=== PATIENT | male | born 1940 | race Two or more races ===

== ENCOUNTER → 2021-10-14 | Outpatient (CLI) | payer MEDICARE, OTHER ==
[2021-10-14 17:08] LABS: Basophils # (auto) 0 10 ^3/uL (0-0.2); Basophils % (auto) 0.5 % (0.0-2.0); Eosinophils # (auto) 0.1 10 ^3/uL (0-0.8); Eosinophils % (auto) 2.1 % (0.0-7.0); Hematocrit 41.7 % (41.0-53.0); Hemoglobin 13.5 g/dL (13.5-17.5); Lymphocytes % (auto) 34.4 % (10.0-50.0); Mean Corpuscular Hemoglobin 31.6 pg (28.0-32.0); Mean Corpuscular Hgb Conc. 32.3 g/dL (32.0-36.0); Mean Corpuscular Volume 97.9 fL (80.0-100.0); Monocytes # (auto) 0.6 10 ^3/uL (0-1.3); Monocytes % (auto) 10.6 % (0.0-12.0); Neutrophils # (auto) 3.1 10 ^3/uL (1.6-8.6); Neutrophils % (auto) 52.4 % (37.0-80.0); Nucleated Red Blood Cells % 0.1 %; Red Blood Cells 4.26 10^6/uL (4.5-5.90); Red Cell Distribution Width 13.3 % (11.8-14.3); White Blood Cell 5.9 10^3/uL (4.4-10.8)
[2021-10-14 17:10] LABS: Urine Blood Negative /uL (Negative)
[2021-10-14 17:13] LABS: Albumin 3.8 g/dL (3.4-5.0); Calcium 9.2 mg/dL (8.5-10.1); Potassium 4.1 mmol/L (3.5-5.1)
[2021-10-14 17:20] LABS: Bilirubin, Total 0.6 mg/dL (0.2-1.0); Total Protein 7.2 g/dL (6.4-8.2)
[2021-10-14 17:22] LABS: Free T4 (Free Thyroxine) 1.12 ng/dL (0.89-1.76); Prostate Specific Antigen 0.71 ng/mL (0.0-4.0)
== END | disposition home or self-care (01) ==
LOC: LAB 11:36 → EDSEX 11:36
PROVIDERS: ATTEND Internal Medicine Cardiovascular Disease
DX: C61 Malignant neoplasm of prostate (principal); I10 Essential (primary) hypertension; E55.9 Vitamin D deficiency, unspecified; D51.3 Other dietary vitamin B12 deficiency anemia; D64.9 Anemia, unspecified; E11.9 Type 2 diabetes mellitus without complications; R00.2 Palpitations; R53.1 Weakness; R30.0 Dysuria
CPT/HCPCS: 36415; 80053; 80061; 81003; 82306; 82607; 83036; 84153; 84403; 84439; 84443; 85025

== ENCOUNTER → 2022-03-10 | Outpatient (CLI) | payer MEDICARE, OTHER | END | disposition home or self-care (01) | LOC: Rad HDHVI 11:45 | PROVIDERS: ATTEND Internal Medicine Cardiovascular Disease | DX: M19.011 Primary osteoarthritis, right shoulder (principal) | CPT/HCPCS: 73030 ==

== ENCOUNTER → 2022-05-17 | Outpatient (CLI) | payer MEDICARE, OTHER | END | disposition home or self-care (01) | LOC: Rad HDHVI 08:50 | PROVIDERS: ATTEND Internal Medicine Cardiovascular Disease | DX: I10 Essential (primary) hypertension (principal); E78.5 Hyperlipidemia, unspecified | CPT/HCPCS: 93880 ==

== ENCOUNTER → 2022-06-05 | Outpatient (CLI) | payer MEDICARE, OTHER | END | disposition home or self-care (01) | LOC: Rad HDHVI 11:09 | PROVIDERS: ATTEND Internal Medicine Cardiovascular Disease | DX: I08.0 Rheumatic disorders of both mitral and aortic valves (principal); R00.2 Palpitations; R07.89 Other chest pain | CPT/HCPCS: 93306 ==

== ENCOUNTER → 2022-10-02 | Outpatient (CLI) | payer MEDICARE, OTHER | END | disposition home or self-care (01) | LOC: Rad HDHVI 15:20 | PROVIDERS: ATTEND Internal Medicine Cardiovascular Disease | DX: M19.041 Primary osteoarthritis, right hand (principal); M79.641 Pain in right hand | CPT/HCPCS: 73130 ==

== ENCOUNTER → 2023-07-18 | Outpatient (CLI) | payer MEDICARE, OTHER | END | disposition home or self-care (01) | LOC: Rad HDHVI 15:43 | PROVIDERS: ATTEND Internal Medicine Cardiovascular Disease | DX: I10 Essential (primary) hypertension (principal) | CPT/HCPCS: 93880 ==

== ENCOUNTER → 2023-07-25 | Outpatient (CLI) | payer MEDICARE, OTHER ==
[~2023-07-25] VITALS: Ht 175.3 cm; Wt 80.7 kg
== END | disposition home or self-care (01) ==
LOC: Rad HDHVI 08:49
PROVIDERS: ATTEND Internal Medicine Cardiovascular Disease
DX: I25.10 Atherosclerotic heart disease of native coronary artery without angina pectoris (principal); I50.33 Acute on chronic diastolic (congestive) heart failure; R06.02 Shortness of breath; R94.31 Abnormal electrocardiogram [ECG] [EKG]; R00.2 Palpitations
CPT/HCPCS: 78452; 93005; 96374; 96375; A9500

== ENCOUNTER → 2023-07-31 | Outpatient (CLI) | payer MEDICARE, OTHER | END | disposition home or self-care (01) | LOC: Rad HDHVI 15:55 | PROVIDERS: ATTEND Internal Medicine Cardiovascular Disease | DX: I34.81 Nonrheumatic mitral (valve) annulus calcification (principal); R00.2 Palpitations; I10 Essential (primary) hypertension | CPT/HCPCS: 93306 ==

== ENCOUNTER → 2023-12-07 | Outpatient (CLI) | payer MEDICARE, OTHER | END | disposition home or self-care (01) | LOC: Rad HDHVI 10:47 | PROVIDERS: ATTEND Internal Medicine Cardiovascular Disease | DX: M16.12 Unilateral primary osteoarthritis, left hip (principal); M25.752 Osteophyte, left hip; M48.07 Spinal stenosis, lumbosacral region; M47.817 Spondylosis without myelopathy or radiculopathy, lumbosacral region; M25.552 Pain in left hip; M54.50 Low back pain, unspecified | CPT/HCPCS: 72131; 73700 ==

== ENCOUNTER 2024-07-02 09:31 | Inpatient (IN) | payer MEDICARE, OTHER ==
[~2024-07-02] VITALS: Ht 175.3 cm; Wt 72.9 kg
--- NOTE | 2024-07-02 09:45 | ED.PDOC ---
History of Present Illness HPI Comments 83 year old male NIMA presents to the ED with chief complaint of headache. EMS relays that the patient has been experiencing a headache with associated nausea and blurred vision since this morning after waking up. Patient relays that he took 2 Viagra pills last night. Patient denies any vomiting, abdominal pain, dizziness, chest pain, LOC, or numbness. Patient's BP was noted to be 205/107 in triage. s Time Seen by MD: 09:41 Reviewed Notes: Nurses Notes, Sewing Machine Operator Paper Bags Notes, Medications, Allergies Allergies: Coded Allergies: Morphine (Verified Allergy, Unknown, 08/28/22) Information Source: Patient, Emergency Med Personnel Mode of Arrival: EMS Severity: Moderate Timing: Hours Duration: Since onset Prehospital treatment: None Past Medical History PAST MEDICAL HISTORY: Denies Surgical History: Denies all surgeries Surgical History (Other): Right Hip Surgery Family History Family History: Reviewed,noncontributory to illness Social History Smoker: Non-Smoker Alcohol: Denies ETOH Use Drugs: Denies Drug Use Lives In: Home Constitutional: denies: chills, diaphoresis, fatigue, fever, malaise, sweats, weakness, others EENTM: reports: blurred vision; denies: double vision, ear bleeding, ear discharge, ear drainage, ear pain, ear ringing, eye pain, eye redness, hearing loss, mouth pain, mouth swelling, nasal discharge, nose bleeding, nose congestion, nose pain, photophobia, tearing, throat pain, throat swelling, voice changes, others Respiratory: denies: cough, hemoptysis, orthopnea, SOB at rest, shortness of breath, SOB with excertion, stridor, wheezing, others Cardiovascular: denies: chest pain, dizzy spells, diaphoresis, Dyspnea on exertion, edema, irregular heart beat, left arm pain, lightheadedness, palpitations, PND, syncope, others Gastrointestinal: reports: nausea; denies: abdomen distended, abdominal pain, blood streaked bowels, constipated, diarrhea, dysphagia, difficulty swallowing, hematemesis, melena, poor appetite, poor fluid intake, rectal bleeding, rectal pain, vomiting, others Genitourinary: denies: burning, dysuria, flank pain, frequency, hematuria, incontinence, penile discharge, penile sore, pain, testicle pain, testicle swelling, urgency, others Neurological: reports: headache; denies: dizziness, fainting, left sided numbness, left sided weakness, numbness, paresthesia, pre-existing deficit, right sided numbness, right sided weakness, seizure, speech problems, tingling, tremors, weakness, others Musculoskeletal: denies: back pain, gout, joint pain, joint swelling, muscle pain, muscle stiffness, neck pain, others Integumetry: denies: bruises, change in color, change in hair/nails, dryness, laceration, lesions, lumps, rash, wounds, others Allergic/Immunocompromised: denies: Difficulty Healing, Frequent Infections, Hives, Itching, others Hematologic/Lymphatic: denies: anemia, blood clots, easy bleeding, easy bruising, swollen glands, others Endocrine: denies: excessive hunger, excessive sweating, excessive thirst, excessive urination, flushing, intolerance to cold, intolerance to heat, unexplained weight gain, unexplained weight loss, others Psychiatric: denies: anxiety, bipolar disorder, depression, hopeless, panic disorder, schizophrenia, sleepless, suicidal, others All Other Systems: Reviewed and Negative Physical Exam General Appearance: Moderate Distress, Normal HEENT: Normal ENT Inspection, Pharynx Normal, TMs Normal Neck: Full Range of Motion, Non-Tender, Normal, Normal Inspection Respiratory: Chest Non-Tender, Lungs Clear, No Accessory Muscle Use, No Respiratory Distress, Normal Breath Sounds Cardiovascular: No Edema, No JVD, No Murmur, No Gallop, Normal Peripheral Pulses, Regular Rate/Rhythm Breast Exam: Deferred Gastrointestinal: No Organomegaly, Non Tender, No Pulsatile Mass, Normal Bowel Sounds, Soft Genitalia: Deferred Pelvic: Deferred Rectal: Deferred Extremities: No calf tenderness, Normal capillary refill, Normal inspection, Normal range of motion, Non-tender, No pedal edema Musculoskeletal : Apperance: Normal Neurologic: Alert, supervisor matrix II-XII nml as Tested, No Motor Deficits, Normal Affect, Normal Mood, No Sensory Deficits Cerebellar Function: Normal Reflexes: Normal Skin: Dry, Normal Color, Warm Peripheral Pulses: 3+ Radial (R), 3+ Radial (L) Lymphatic: No Adenopathy Was a procedure done? Was a procedure done?: No Differential Dx Considerations may include: Headache Electrolyte imbalance X-Ray, Labs, Meds, VS Vital Signs Date Time Temp Pulse Resp B/P (MAP) Pulse Ox O2 Delivery O2 Flow Rate FiO2 07/02/24 12:00 74 07/02/24 12:00 98.5 74 16 142/76 (98) 95 98.5 07/02/24 10:05 206/90 07/02/24 09:55 63 07/02/24 09:50 98.7 61 12 196/91 (126) 95 98.7 07/02/24 09:50 61 12 95 Room Air* 0 21 07/02/24 09:38 61 07/02/24 09:37 98.4 86 16 205/107 (139) 100 98.4 Lab Test 07/02/24 13:56 07/02/24 13:35 07/02/24 10:43 07/02/24 09:45 Range/Units Troponin I High Sensitivity 15 13 14 </=54 ng/L Urine Color Yellow Yellow Urine Clarity Clear Clear Urine pH 5.5 5.0-9.0 Urine Specific [place] 1.014 1.001-1.035 Urine Protein Trace H Negative Urine Ketones 1+ H Negative Urine Blood Negative Negative /uL Urine Nitrite Negative Negative Urine Bilirubin Negative Negative Urine Urobilinogen Normal Negative mg/dL Urine Leukocyte Esterase Negative Negative /uL Urine RBC None seen 0 - 3 /hpf Urine Microscopic WBC < 1 0-3 /HPF Urine Squamous Epithelial Cells None seen <5 /hpf Urine Bacteria Few H None Seen /hpf Urine Mucus Few None Seen Urine Glucose Normal Normal mg/dL White Blood Count 5.1 4.4-10.8 10^3/uL Red Blood Count 4.88 4.5-5.90 10^6/uL Hemoglobin 15.8 13.5-17.5 g/dL Hematocrit 46.9 41.0-53.0 % Mean Corpuscular Volume 96.2 80.0-100.0 fL Mean Corpuscular Hemoglobin 32.3 H 28.0-32.0 pg Mean Corpuscular Hemoglobin Concent 33.6 32.0-36.0 g/dL Red Cell Distribution Width 13.8 11.8-14.3 % Platelet Count 159 140-450 10^3/uL Mean Platelet Volume 8.2 6.9-10.8 fL Neutrophils (%) (Auto) 61.0 37.0-80.0 % Lymphocytes (%) (Auto) 24.6 10.0-50.0 % Monocytes (%) (Auto) 12.3 H 0.0-12.0 % Eosinophils (%) (Auto) 1.5 0.0-7.0 % Basophils (%) (Auto) 0.6 0.0-2.0 % Neutrophils # (Auto) 3.1 1.6-8.6 10 ^3/uL Lymphocytes # (Auto) 1.2 0.4-5.4 10 ^3/uL Monocytes # (Auto) 0.6 0-1.3 10 ^3/uL Eosinophils # (Auto) 0.1 0-0.8 10 ^3/uL Basophils # (Auto) 0 0-0.2 10 ^3/uL Nucleated Red Blood Cells 0.1 % Sodium Level 139 136-145 mmol/L Potassium Level 4.0 3.5-5.1 mmol/L Chloride Level 103 98-107 mmol/L Carbon Dioxide Level 28 20-31 mmol/L Anion Gap 8 5-15 Blood Urea Nitrogen 22 9-23 mg/dL Creatinine 1.53 H 0.700-1.30 mg/dL Glomerular Filtration Rate Calc 45 >90 mL/min BUN/Creatinine Ratio 14.4 10.0-20.0 Serum Glucose 101 74-106 mg/dL Calcium Level 9.8 8.7-10.4 mg/dL Current Medications Medications (Trade) Dose Ordered Sig/Alfie Route Start Time Stop Time Status Last Admin Hydralazine HCl (Apresoline Injection) 10 mg ONCE ONCE IV 07/02/24 10:15 07/02/24 10:16 DC 07/02/24 10:05 Patient alert. Complaining of headache. Blood pressure elevated. Was given hydralazine. Answering questions. Moving all extremities. Continues to have headache. Did have Viagra yesterday. WBC within normal limits. Hemoglobin within normal limits. EKG reviewed does not show any acute changes. CT of the head reviewed does not show any acute changes. Explained to the patient that his blood pressure will need to be monitor explained the results. Continue monitoring. Time of 1ST Reevaluation: 10:41 Reevaluation 1ST: Unchanged Patient Education/Counseling: Diagnosis, Treatment Family Education/Counseling: No Family Present Additional Information The following tests were ordered, and results were reviewed by me: CBC, BMP, Troponin Additional Information was gathered from interviewing the following independent historians: EMS I reviewed and agreed with the following test results read by other providers: None I discussed treatment and results with medical personnel and: patient Comprehensive systems review obtained and negative except for what is stated in the HPI. Departure 1 Departure Time of Disposition: 11:09 Impression: Primary Impression: Hypertensive emergency Disposition: 09 ADMITTED INPATIENT Admit to: Med Surg Condition: Guarded Comments Spoke to and examined patient at 0942, discussing treatment plan at this time. Critical Care Note Critical Care Time?: Yes (90 min-critical care time only) Critical care comment: Blood pressure extremely elevated continue monitoring Stability Stability form required: No Heart Score Heart Score: Heart Score Response (Comments) Value History Slightly Suspicious 0 EKG Normal 0 Age >65 2 Risk Factors >3 or Hx ASHD 2 Troponin Normal limit 0 Total 4 I personally scribed for PAUL ESTRADA MD ([email or web address]) on 07/02/24 at 09:45. Electronically submitted by Osmin De Oliveira ([email or web address]). PAUL ESTRADA MD July 02, 2024 09:45
[2024-07-02 09:50] VITALS: PULSE 61; RESP 12; O2SAT 95
[2024-07-02 09:56] LABS: Basophils # (auto) 0 10 ^3/uL (0-0.2); Basophils % (auto) 0.6 % (0.0-2.0); Eosinophils # (auto) 0.1 10 ^3/uL (0-0.8); Eosinophils % (auto) 1.5 % (0.0-7.0); Hematocrit 46.9 % (41.0-53.0); Hemoglobin 15.8 g/dL (13.5-17.5); Lymphocytes # (auto) 1.2 10 ^3/uL (0.4-5.4); Lymphocytes % (auto) 24.6 % (10.0-50.0); Mean Corpuscular Hemoglobin 32.3 pg (28.0-32.0); Mean Corpuscular Hgb Conc. 33.6 g/dL (32.0-36.0); Mean Corpuscular Volume 96.2 fL (80.0-100.0); Monocytes # (auto) 0.6 10 ^3/uL (0-1.3); Monocytes % (auto) 12.3 % (0.0-12.0); Neutrophils # (auto) 3.1 10 ^3/uL (1.6-8.6); Nucleated Red Blood Cells % 0.1 %; Platelet Count (auto) 159 10^3/uL (140-450); Red Blood Cells 4.88 10^6/uL (4.5-5.90); Red Cell Distribution Width 13.8 % (11.8-14.3); White Blood Cell 5.1 10^3/uL (4.4-10.8)
[2024-07-02] MEDS: hydrALAZINE HCL 20 MG/ML VL IV ONE (10:05)
[2024-07-02 10:08] LABS: Chloride 103 mmol/L (98-107); Sodium 139 mmol/L (136-145)
[2024-07-02 10:09] LABS: Anion Gap 8 (5-15); Calcium 9.8 mg/dL (8.7-10.4); Carbon Dioxide 28 mmol/L (20-31)
[2024-07-02 10:14] LABS: BUN/Creatinine Ratio 14.4 (10.0-20.0); Blood Urea Nitrogen 22 mg/dL (9-23); Glucose 101 mg/dL (74-106)
--- NOTE | 2024-07-02 11:48 | DVH ---
EXAM: CT HEAD WITHOUT CONTRAST INDICATION: headache TECHNIQUE: CT of the head without intravenous contrast. Coronal and sagittal reformatted images are s ubmitted. Radiation Dose : 1. Head: CT Dose: CTDI volume is 56.33 mGy. Dose-length product is 997.41 mGy*cm The dose indicators for CT are the volume Computed Tomography (CT) Dose Index (CTDIvol) and the Dose Length Product (DLP), and are measured in units of mGy and mGy-cm, respectively. These indicators are not patient dose, but values generated from the CT scanner acquisition factors. The report includes radiation exposure data for exposures received during this examination. All CT scans at this medical facility are performed using dose modulation techniques as appropriate to a performed exam including the following: Automated exposure control was utilized; adjustment of the MA and/or KV according to patient size; and use of iterative reconstruction technique. COMPARISON: None FINDINGS: There is no evidence of acute intracranial hemorrhage, extra-axial collection, mass effect, midline s hift, herniation or hydrocephalus. The ventricles, sulci and cisterns are age appropriate. The combs-white differentiation is intact. The mastoid air cells are clear. Mucosal thickening noted in the left maxillary sinus. No depressed calvarial fracture. The surrounding soft tissues are unremarkable. IMPRESSION: 1. No acute intracranial abnormality.
[2024-07-02 15:15] LABS: Urine Bacteria FEW /hpf (None Seen); Urine Blood Negative /uL (Negative); Urine Clarity Clear (Clear); Urine Color Yellow (Yellow); Urine Mucus FEW (None Seen); Urine Protein, UAD TRACE (Negative); Urine Specific Gravity 1.014 (1.001-1.035); Urine Squamous Epithelial Cell None Seen /hpf (<5); Urine Urobilinogen Normal (Negative); Urine WBC < 1 /HPF (0-3); Urine pH 5.5 (5.0-9.0)
[2024-07-02] MEDS ORDERED: SILD100T73 PO (17:19)
[2024-07-02] MEDS ORDERED: ZOLP5TAB5 PO (17:19)
[2024-07-02] MEDS ORDERED: ZOLPIDEM TARTRATE 5 MG TAB PO PRN (17:30)
[2024-07-02] MEDS ORDERED: ONDANSETRON HCL 4 MG/2 ML VIAL IV PRN (17:30)
[2024-07-02] MEDS ORDERED: HYDROcodone-ACET 5/325MG TAB PO PRN (17:30)
[2024-07-02] MEDS ORDERED: DOCUSATE SOD 100 MG CAP PO PRN (17:30)
[2024-07-02] MEDS ORDERED: ACETAMINOPHEN 325 MG TAB PO PRN (17:30)
--- NOTE | 2024-07-02 17:35 | DVHHP2 ---
History of Present Illness Reason for Visit: Headache, blurry vision History of Present Illness Aris Bob is an 83-year-old male with past medical history of cataracts, and legally blind, who came to the hospital for headache and blurry vision. Patient states he accidently took 2 of his Viagra pills last night, and that he woke up this morning with a severe headache and his vision was worse. Patient was hypertensive on arrival. He denies any past history of hypertension. Past Surgical History: Cataract Removal, Other (Left carpal tunnel, ), Total hip replacement (right) Smoke: No ALCOHOL: none Drugs: None Lives: with Family Domestic Violence: Neg Review of Systems Constitutional: Yes: Other (Headache); No: Fever, Chills, Sweats, Weakness, Malaise Eyes: Vision change (blurry); No: Pain, Conjunctivae inflammation, Eyelid inflammation, Other, Redness ENT: No: Ear pain, Ear discharge, Nose pain, Nose discharge, Nose congestion, Mouth pain, Mouth swelling, Throat pain, Throat swelling, Other Respiratory: No: Cough, Dry, Shortness of breath, SOB with excertion, Wheezing, Hemoptysis, Pleuritic Pain, Sputum, Wheezing, Other Cardiovascular: No: Chest Pain, Palpitations, Orthopnea, Paroxysmal Noc. Dyspnea, Edema, Lt Headedness, Other Gastrointestinal: No: Nausea, Vomiting, Abdominal Pain, Diarrhea, Constipation, Melena, Hematochezia, Other Genitourinary: No Dysuria, No Frequency, No Incontinence, No Hematuria, No Retention, No Other Musculoskeletal: No: other, neck pain, shoulder pain, arm pain, back pain, hand pain, leg pain, foot pain Skin: No: Rash, Lesions, Jaundice, Bruising, Other Neurological: No: Weakness, Numbness, Incoordination, Change in speech, Confusion, Seizures, Other Allergies: Coded Allergies: Morphine (Verified Allergy, Unknown, 08/28/22) Medications Current Medications Medications Dose Ordered Sig/Alfie Route Start Time Stop Time Status Last Admin Dose Admin Acetaminophen/ Hydrocodone Bitart 1 tab Q4HP PRN PO 07/02/24 17:30 UNV Ondansetron HCl 4 mg Q4HP PRN IV 07/02/24 17:30 UNV Docusate Sodium 100 mg BIDPRN PRN PO 07/02/24 17:30 UNV Acetaminophen 650 mg Q6HP PRN PO 07/02/24 17:30 UNV Exam Vital Signs Vital Signs Date Time Temp Pulse Resp B/P (MAP) Pulse Ox O2 Delivery O2 Flow Rate FiO2 07/02/24 16:00 98.5 78 20 162/96 (118) 94 98.5 07/02/24 09:50 Room Air* 0 21 General Appearance: Alert, Oriented X3, Cooperative, mild distress HEENT: Atraumatic, Other (Legally blind, states vision is more blurry than normal) Respiratory: Clear to auscultation, Normal air movement Cardiovascular: Regular rate, Normal S1, Normal S2, No murmurs Abdominal: Normal bowel sounds, Soft, No tenderness, No hepatospenomegaly Extremities: No clubbing, No cyanosis, No edema, Normal pulses, No tenderness/swelling Skin: No rashes, No breakdown, No significant lesion Neuro: Normal gait, Normal speech, Strength at 5/5 X4 ext, Normal tone Psych/Mental Status: Mental status NL, Mood NL Labs/Xrays Labs Test 07/02/24 13:56 07/02/24 13:35 07/02/24 09:45 Range/Units Troponin I High Sensitivity 15 </=54 ng/L Urine Color Yellow Yellow Urine Clarity Clear Clear Urine pH 5.5 5.0-9.0 Urine Specific [place] 1.014 1.001-1.035 Urine Protein Trace H Negative Urine Ketones 1+ H Negative Urine Blood Negative Negative /uL Urine Nitrite Negative Negative Urine Bilirubin Negative Negative Urine Urobilinogen Normal Negative mg/dL Urine Leukocyte Esterase Negative Negative /uL Urine RBC None seen 0 - 3 /hpf Urine Microscopic WBC < 1 0-3 /HPF Urine Squamous Epithelial Cells None seen <5 /hpf Urine Bacteria Few H None Seen /hpf Urine Mucus Few None Seen Urine Glucose Normal Normal mg/dL White Blood Count 5.1 4.4-10.8 10^3/uL Red Blood Count 4.88 4.5-5.90 10^6/uL Hemoglobin 15.8 13.5-17.5 g/dL Hematocrit 46.9 41.0-53.0 % Mean Corpuscular Volume 96.2 80.0-100.0 fL Mean Corpuscular Hemoglobin 32.3 H 28.0-32.0 pg Mean Corpuscular Hemoglobin Concent 33.6 32.0-36.0 g/dL Red Cell Distribution Width 13.8 11.8-14.3 % Platelet Count 159 140-450 10^3/uL Mean Platelet Volume 8.2 6.9-10.8 fL Neutrophils (%) (Auto) 61.0 37.0-80.0 % Lymphocytes (%) (Auto) 24.6 10.0-50.0 % Monocytes (%) (Auto) 12.3 H 0.0-12.0 % Eosinophils (%) (Auto) 1.5 0.0-7.0 % Basophils (%) (Auto) 0.6 0.0-2.0 % Neutrophils # (Auto) 3.1 1.6-8.6 10 ^3/uL Lymphocytes # (Auto) 1.2 0.4-5.4 10 ^3/uL Monocytes # (Auto) 0.6 0-1.3 10 ^3/uL Eosinophils # (Auto) 0.1 0-0.8 10 ^3/uL Basophils # (Auto) 0 0-0.2 10 ^3/uL Nucleated Red Blood Cells 0.1 % Sodium Level 139 136-145 mmol/L Potassium Level 4.0 3.5-5.1 mmol/L Chloride Level 103 98-107 mmol/L Carbon Dioxide Level 28 20-31 mmol/L Anion Gap 8 5-15 Blood Urea Nitrogen 22 9-23 mg/dL Creatinine 1.53 H 0.700-1.30 mg/dL Glomerular Filtration Rate Calc 45 >90 mL/min BUN/Creatinine Ratio 14.4 10.0-20.0 Serum Glucose 101 74-106 mg/dL Calcium Level 9.8 8.7-10.4 mg/dL EXAM: CT HEAD WITHOUT CONTRAST FINDINGS: There is no evidence of acute intracranial hemorrhage, extra-axial collection, mass effect, midline shift, herniation or hydrocephalus. The ventricles, sulci and cisterns are age appropriate. The combs-white differentiation is intact. The mastoid air cells are clear. Mucosal thickening noted in the left maxillary sinus. No depressed calvarial fracture. The surrounding soft tissues are unremarkable. IMPRESSION: 1. No acute intracranial abnormality. Assessment/Plan Assessment/Plan Assessment: Hypertensive emergency, UTI, Blurry vision, Intractable headache, Plan: Admit to Med-Surg, Start antihypertensives, Toradol for headache, IV antibiotics, IV hydration, Home medications reconciled, Plan discussed with: Patient My Orders Orders - JUHI WILDER Procedure Category Date Status Time Admit ADMIT 07/02/24 Transmitted 17:16 Code Status CODE 07/02/24 Transmitted 17:16 2 Gm Sodium Diet DIET 07/02/24 Transmitted Dinner Hydrocodone-Acet PHA 07/02/24 Logged 5/325mg Tab ([place] 17:30 Ondansetron Hcl PHA 07/02/24 Logged (Zofran) 17:30 Docusate Sodium PHA 07/02/24 Logged Capsule ([place] 17:30 Complete Blood Count LAB 07/03/24 Verified 04:00 Comprehensive LAB 07/03/24 Verified Metabolic Panel 04:00 Condition: Serious LILO 07/02/24 In Process 17:16 Acetaminophen Tablet PHA 07/02/24 Logged (Tylenol Tablet) 17:30 Ceftriaxone Ivpb PHA 07/03/24 Verified Rocephin 09:00 Ceftriaxone Ivpb PHA 07/02/24 Verified Rocephin 17:30 Amlodipine Tablet PHA 07/02/24 Verified (Norvasc Tablet) 17:30 Amlodipine Tablet PHA 07/03/24 Verified (Norvasc Tablet) 10:00 Zolpidem Tartrate PHA 07/02/24 Verified (Ambien) 17:30 Date of Service: July 02, 2024 Billing Provider: JUHI WILDER Common Visit Codes: [id number] INP/OBS CARE (MOD) JUHI WILDER July 02, 2024 17:35
[2024-07-02] MEDS: amLODIPine BESYLATE 5 MG TAB PO ONE (17:40)
[2024-07-02] MEDS: cefTRIAXone 1GM/50ML D5W 50 ML IV ONE (17:41)
[2024-07-02] MEDS: SODIUM CHLORIDE 0.9% 1,000 ML IV ONE (17:41)
[2024-07-02] MEDS: KETOROLAC TROMETH 30 MG/ML 1ML VIAL IV ONE (17:44)
--- NOTE | 2024-07-02 19:04 | ECG ---
[facility] Test Date: 2024-07-02 Test Time: 09:36:07 Pat Name: JASON CORTES Department: ED Room: 0291 Gender: M Family Dentist: BRIEN : 1940 Requested By: PAUL ESTRADA Order Number: [id number] Reading MD: Osvaldo Casanova Measurements Intervals [place] Rate: 61 P: 49 IN: 223 QRS: -13 QRSD: 91 T: 46 QT: 394 QTc: 397 Interpretive Statements Sinus rhythm Prolonged IN interval Abnormal R-wave progression, early transition ST elevation suggests acute pericarditis Electronically Signed On 07-03-2024 13:13:28 PDT by Osvaldo Casanova Please click the below link to view image of tracing.
[2024-07-02 19:50] VITALS: RESP 14; O2SAT 91
[2024-07-02 22:27] VITALS: BP 123/63; PULSE 63; RESP 15; TEMP 98.3; O2SAT 92
[2024-07-03 01:00] VITALS: BP 100/52; PULSE 74; RESP 15; TEMP 98.5; O2SAT 90
[2024-07-03 05:00] VITALS: BP 145/95; PULSE 84; RESP 15; TEMP 98.4; O2SAT 93
[2024-07-03 06:49] LABS: Hematocrit 44.4 % (41.0-53.0); Hemoglobin 15.4 g/dL (13.5-17.5); Mean Corpuscular Hgb Conc. 34.7 g/dL (32.0-36.0); Mean Corpuscular Volume 94.9 fL (80.0-100.0); Platelet Count (auto) 163 10^3/uL (140-450); Red Blood Cells 4.68 10^6/uL (4.5-5.90); Red Cell Distribution Width 13.3 % (11.8-14.3)
[2024-07-03 06:57] LABS: Band Neutrophils % (manual) 0; Basophils % (manual) 0 (0.0-2.0); Blast Cells 0; Metamyelocytes % 0; Myelocytes % 0; Promyelocytes % 0; Reactive Lymphocytes 0
[2024-07-03 07:12] LABS: Alanine Aminotransferase 16 U/L (7-40); Albumin 3.7 g/dL (3.2-4.8); Alkaline Phosphatase 73 U/L (46-116); Anion Gap 10 (5-15); Aspartate Aminotransferase 18 U/L (13-40); BUN/Creatinine Ratio 13.2 (10.0-20.0); Bilirubin, Total 0.6 mg/dL (0.2-1.0); Blood Urea Nitrogen 19 mg/dL (9-23); Calcium 8.9 mg/dL (8.7-10.4); Carbon Dioxide 26 mmol/L (20-31); Chloride 103 mmol/L (98-107); Sodium 139 mmol/L (136-145); Total Protein 5.9 g/dL (5.7-8.2)
[2024-07-03 07:15] LABS: Glucose 133 mg/dL (74-106); Potassium 3.5 mmol/L (3.5-5.1)
[2024-07-03 08:29] LABS: Eosinophils % (manual) 2 (0-7); Lymphocytes % (manual) 37 (10.0-50.0); Monocytes % (manual) 14 (0-12); Platelet Estimate Adequate
[2024-07-03 09:00] VITALS: BP 155/87; PULSE 73; RESP 18; TEMP 97.8; O2SAT 96
[2024-07-03] MEDS: cefTRIAXone 1GM/50ML D5W 50 ML IV SCH (09:00)
[2024-07-03] MEDS: amLODIPine BESYLATE 5 MG TAB PO SCH (09:18)
[2024-07-03] MEDS ORDERED: AMLO1TAB23 PO (12:03)
--- NOTE | 2024-07-03 12:05 | DVHPN2 ---
Reviewed: Care Plan, H&P, Labs, Medications, Previous Orders, Radiology Changes from previous H/P or p: No Changes Eyes: No Pain; Vision change (blurry); No Conjunctivae inflammation, No Eyelid inflammation, No Other, No Redness ENT: No Ear pain, No Ear discharge, No Nose pain, No Nose discharge, No Nose congestion, No Mouth pain, No Mouth swelling, No Throat pain, No Throat swelling, No Other Cardiovascular: No Chest Pain, No Palpitations, No Orthopnea, No Paroxysmal Noc. Dyspnea, No Edema, No Lt Headedness, No Other Respiratory: No Cough, No Dry, No Shortness of breath, No SOB with excertion, No Wheezing, No Hemoptysis, No Pleuritic Pain, No Sputum, No Other Gastrointestinal: No Nausea, No Vomiting, No Abdominal Pain, No Diarrhea, No Constipation, No Melena, No Hematochezia, No Other Genitourinary: No Dysuria, No Frequency, No Incontinence, No Hematuria, No Retention, No Other Musculoskeletal: No other, No neck pain, No shoulder pain, No arm pain, No back pain, No hand pain, No leg pain, No foot pain Skin: No Rash, No Lesions, No Jaundice, No Bruising, No Other Objective Vitals Vital Signs Date Time Temp Pulse Resp B/P (MAP) Pulse Ox O2 Delivery O2 Flow Rate FiO2 07/03/24 09:18 155/87 07/03/24 09:00 97.8 73 18 96 97.8 07/03/24 08:00 Room Air* 0 21 Intake/Output Intake and Output 07/03/24 07:00 Intake Total 350 ml Balance 350 ml Intake Oral 300 ml IV Total 50 ml # Voids 2 Medications Current Medications Medications Dose Ordered Sig/Alfie Route Start Time Stop Time Status Last Admin Dose Admin Acetaminophen/ Hydrocodone Bitart 1 tab Q4HP PRN PO 07/02/24 17:30 Ondansetron HCl 4 mg Q4HP PRN IV 07/02/24 17:30 Docusate Sodium 100 mg BIDPRN PRN PO 07/02/24 17:30 Acetaminophen 650 mg Q6HP PRN PO 07/02/24 17:30 Ceftriaxone Sodium 50 ml @ 100 mls/hr DAILY@09 IV 07/03/24 09:00 Amlodipine Besylate 5 mg DAILY PO 5/15/25 10:00 07/03/24 09:18 5 MG Zolpidem Tartrate 5 mg HSPRN PRN PO 07/02/24 17:30 Laboratory Results Laboratory Tests 07/03/24 06:14 Chemistry Test 07/03/24 06:14 Albumin 3.7 g/dL (3.2-4.8) Calcium Level 8.9 mg/dL (8.7-10.4) Total Protein 5.9 g/dL (5.7-8.2) LFT Test 07/03/24 06:14 Alanine Aminotransferase (ALT) 16 U/L (7-40) Alkaline Phosphatase 73 U/L (46-116) Aspartate Amino Transferase (AST) 18 U/L (13-40) Total Bilirubin 0.6 mg/dL (0.2-1.0) Urinalysis Test 07/02/24 13:35 Urine Color Yellow (Yellow) Urine Clarity Clear (Clear) Urine pH 5.5 (5.0-9.0) Urine Specific [place] 1.014 (1.001-1.035) Urine Protein Trace (Negative) H Urine Ketones 1+ (Negative) H Urine Blood Negative /uL (Negative) Urine Nitrite Negative (Negative) Urine Bilirubin Negative (Negative) Urine Urobilinogen Normal mg/dL (Negative) Urine Leukocyte Esterase Negative /uL (Negative) Urine RBC None seen /hpf (0 - 3) Urine Microscopic WBC < 1 /HPF (0-3) Urine Squamous Epithelial Cells None seen /hpf (<5) Urine Bacteria Few /hpf (None Seen) H Urine Mucus Few (None Seen) Urine Glucose Normal mg/dL (Normal) Labs and/or images reviewed: Labs reviewed by me, Image(s) reviewed by me Assessment/Plan Assessment/Plan Severe headache, resolved Hypertensive encephalopathy Accelerated hypertension with systolic 214: Controlled with the amlodipine CT head negative Per patient he took two Viagra accidentally and has had headache afterwards Legally blind Labs are normal Plan discussed with: Patient Date of Service: July 03, 2024 Billing Provider: ADITYA YIP MD Common Visit Codes: [id number] INP/OBS CARE(HIGH) ADITYA YIP MD July 03, 2024 12:05
--- NOTE | 2024-07-03 12:08 | DVHDS2 ---
Discharge Summary Date of Admission July 02, 2024 at 17:16 Date of Discharge: July 03, 2024 Admitting Diagnosis Headache after taking two Viagra accidentally Wounds: None Labs/Diagnostic Data: Laboratory Results Test 07/03/24 06:14 07/02/24 13:56 07/02/24 13:35 07/02/24 09:45 White Blood Count 4.0 10^3/uL (4.4-10.8) Red Blood Count 4.68 10^6/uL (4.5-5.90) Hemoglobin 15.4 g/dL (13.5-17.5) Hematocrit 44.4 % (41.0-53.0) Mean Corpuscular Volume 94.9 fL (80.0-100.0) Mean Corpuscular Hemoglobin 33.0 pg (28.0-32.0) Mean Corpuscular Hemoglobin Concent 34.7 g/dL (32.0-36.0) Red Cell Distribution Width 13.3 % (11.8-14.3) Platelet Count 163 10^3/uL (140-450) Mean Platelet Volume 8.3 fL (6.9-10.8) Neutrophils (%) (Auto) % (37.0-80.0) Lymphocytes (%) (Auto) % (10.0-50.0) Monocytes (%) (Auto) % (0.0-12.0) Basophils (%) (Auto) % (0.0-2.0) Neutrophils # (Auto) 10 ^3/uL (1.6-8.6) Lymphocytes # (Auto) 10 ^3/uL (0.4-5.4) Monocytes # (Auto) 10 ^3/uL (0-1.3) Differential Total Cells Counted 100.0 (100) Neutrophils % (Manual) 47 (37.0-80.0) Band Neutrophils % (Manual) 0 Lymphocytes % (Manual) 37 (10.0-50.0) Monocytes % (Manual) 14 (0-12) Eosinophils % (Manual) 2 (0-7) Basophils % (Manual) 0 (0.0-2.0) Metamyelocytes % (manual) 0 Myelocytes % (Manual) 0 Promyelocytes % (Manual) 0 Blast Cells % (Manual) 0 Reactive Lymphocytes 0 Platelet Estimate Adequate Sodium Level 139 mmol/L (136-145) Potassium Level 3.5 mmol/L (3.5-5.1) Chloride Level 103 mmol/L (98-107) Carbon Dioxide Level 26 mmol/L (20-31) Anion Gap 10 (5-15) Blood Urea Nitrogen 19 mg/dL (9-23) Creatinine 1.44 mg/dL (0.700-1.30) Glomerular Filtration Rate Calc 49 mL/min (>90) BUN/Creatinine Ratio 13.2 (10.0-20.0) Serum Glucose 133 mg/dL (74-106) Calcium Level 8.9 mg/dL (8.7-10.4) Total Bilirubin 0.6 mg/dL (0.2-1.0) Aspartate Amino Transferase (AST) 18 U/L (13-40) Alanine Aminotransferase (ALT) 16 U/L (7-40) Alkaline Phosphatase 73 U/L (46-116) Total Protein 5.9 g/dL (5.7-8.2) Albumin 3.7 g/dL (3.2-4.8) Troponin I High Sensitivity 15 ng/L (</=54) Urine Color Yellow (Yellow) Urine Clarity Clear (Clear) Urine pH 5.5 (5.0-9.0) Urine Specific Gans 1.014 (1.001-1.035) Urine Protein Trace (Negative) Urine Ketones 1+ (Negative) Urine Blood Negative /uL (Negative) Urine Nitrite Negative (Negative) Urine Bilirubin Negative (Negative) Urine Urobilinogen Normal mg/dL (Negative) Urine Leukocyte Esterase Negative /uL (Negative) Urine RBC None seen /hpf (0 - 3) Urine Microscopic WBC < 1 /HPF (0-3) Urine Squamous Epithelial Cells None seen /hpf (<5) Urine Bacteria Few /hpf (None Seen) Urine Mucus Few (None Seen) Urine Glucose Normal mg/dL (Normal) Eosinophils (%) (Auto) 1.5 % (0.0-7.0) Eosinophils # (Auto) 0.1 10 ^3/uL (0-0.8) Basophils # (Auto) 0 10 ^3/uL (0-0.2) Nucleated Red Blood Cells 0.1 % Other Laboratory Tests 07/03/24 06:14 Brief Hx & Hospital Course: 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 Hypertensive encephalopathy resolved at the time of discharge patient is asymptomatic with stable vital signs all labs were normal discharged home prescription for amlodipine transmitted to the pharmacy he was advised to follow up with his primary Dr. 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: Controlled with the amlodipine CT head negative Per patient he took two Viagra accidentally and has had headache afterwards Legally blind Labs are normal Discharge Disposition: Home Discharge Instruct/Medications Diet: Cardiac 2g Na,low cholest Activity: No Restrictions, As Tolerated Follow Up/Referral: Use medications as prescribed Follow up with the primary Dr in two weeks Return to ER if any symptoms worsen Medications: Amlodipine Transmitted to pharmacy 39 (Time taken for discharge summary 39 minutes) Discharge Statement: "Patient was advised to return to the ER or call 911 if any headaches, dizziness, shortness of breath, chest pain, abdominal pain, bleeding, fevers, or worsening of medical condition. Patient was counseled about treatment plan, medications, possible side effects, patientverbalized understanding. All questions were answered to the best of my ability. 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
[2024-07-03 13:16] VITALS: BP 167/86; PULSE 67; RESP 18; TEMP 97.9; O2SAT 97
== END 2024-07-03 14:02 | disposition home or self-care (01) | DRG 305 ==
LOC: EDUNIT# 09:31 → ER 09:31 → EDBD 09:31 → OVERFLOW 17:16 → WEST WING 22:00
PROVIDERS: ADMIT Family Medicine; ATTEND Family Medicine
DX: I16.1 Hypertensive emergency (principal); I67.4 Hypertensive encephalopathy; H54.8 Legal blindness, as defined in USA; I10 Essential (primary) hypertension; Z96.641 Presence of right artificial hip joint; Z88.5 Allergy status to narcotic agent
CPT/HCPCS: 36415; 70450; 80048; 80053; 81001; 84484; 85007; 85025; 85027; 93005; 96365; 96375; 99291; 99292; G0378; J1885

== ENCOUNTER → 2024-07-16 | Outpatient (CLI) | payer MEDICARE, OTHER ==
[~2024-07-16] MED LIST: AMLO1TAB23 PO; SILD100T73 PO; ZOLP5TAB5 PO
--- NOTE | 2024-07-16 19:07 | DVH ---
EXAM: CT CERVICAL WITHOUT CONTRAST INDICATION: PAIN POST INJURY TECHNIQUE: Non contrast axial images of the cervical spine have been obtained with coronal and sagitt al reformatted images. CT scans at this facility use dose modulation, iterative reconstruction, and/o r weight based dosing when appropriate to reduce radiation dose to as low as reasonably achievable. COMPARISON: None FINDINGS: ANATOMY: Cervical lordosis is maintained. VERTEBRAL BODIES: The vertebral bodies are normal in height and alignment. The dens is intact, the la teral masses of C1 are normally aligned, and the atlantodental interval is normal for age. Sclerosis of the right C7 transverse process. Asymmetric multilevel [id number]-left facet arthropathy SPINAL CANAL: No significant spinal canal stenosis. INTERVERTEBRAL DISCS: Intervertebral disc height loss at C5-6. Trace posterior disc osteophyte comple x measuring 3 mm at C5-6. SOFT TISSUES: There is no prevertebral soft tissue swelling. OTHER: Biapical pleural-parenchymal scarring. IMPRESSION: 1. No acute cervical spine fracture or malalignment.
== END | disposition home or self-care (01) ==
LOC: Rad HDHVI 15:12
PROVIDERS: ATTEND Internal Medicine Cardiovascular Disease
DX: M47.812 Spondylosis without myelopathy or radiculopathy, cervical region (principal); M53.82 Other specified dorsopathies, cervical region; J98.4 Other disorders of lung
CPT/HCPCS: 72125